=== PATIENT | male | born 1980 | race Caucasian/White ===

== ENCOUNTER 2016-10-14 06:14 | Emergency (ER) | payer SELFPAY ==
--- NOTE | 2016-10-14 06:49 | ED ---
Influenza-Like Illness - HPI Summary HPI Summary: Patient presents for evaluation of uri, cough, body aches for the last 2 days. Had 2 sick contacts at home which may have had influenza. [place] lightheaded when standing, but not drinking much during this time period because he is tired. Denies recent antipyretics or antibiotics, travel, dyspnea. - History of Current Complaint Chief Complaint: EDFluSymptoms Time Seen by Provider: 10/14/16 06:35 Hx Obtained From: Patient, Family/Certified Physician Assistant - Aunt Associated Signs & Symptoms: Myalgia, Cough, Sore Throat, Nasal Congestion Related Hx: Possible Flu/Infectious Exposure - Risk Factors Influenza Risk Factors: Negative - Allergy/Home Medications Allergies/Adverse Reactions: Allergies Allergy/AdvReac Type Severity Reaction Status Date / Time No Known Allergies Allergy Verified 10/14/16 06:16 PMH/Surg Hx/FS Hx/Imm Hx Previously Healthy: Yes Infectious Disease History: No Infectious Disease History: Denies: Traveled Outside the [place] in Last 30 Days Review of Systems Constitutional: Negative Negative: Fever, Chills Negative: Photophobia Positive: Sore Throat Cardiovascular: Negative Negative: Palpitations, Chest Pain Positive: Cough. Negative: Shortness Of Breath All Other Systems Reviewed And Are Negative: Yes Physical Exam Triage Information Reviewed: Yes Vital Signs On Initial Exam: Initial Vitals Temp Pulse Resp BP Pulse Ox 99.5 F 82 18 113/81 100 10/14/16 06:14 10/14/16 06:14 10/14/16 06:14 10/14/16 06:14 10/14/16 06:14 Vital Signs Reviewed: Yes Appearance: Positive: Well-Appearing, No Pain Distress, Well-Nourished Skin: Positive: Warm, Skin Color Reflects Adequate Perfusion, Dry Head/Face: Positive: Normal Head/Face Inspection Eyes: Positive: Normal, EOMI, LEON ENT: Positive: Pharyngeal erythema, Nasal congestion, TMs normal, TM bulging, TM dull, TM red. Negative: Nasal drainage, Tonsillar swelling, Tonsillar exudate, Trismus, Muffled/hoarse voice, Dental tenderness Neck: Positive: Supple, Nontender, No Lymphadenopathy Respiratory/Lung Sounds: Positive: Clear to Auscultation, Breath Sounds Present Cardiovascular: Positive: Normal, RRR, Pulses are Symmetrical in both Upper and Lower Extremities Abdomen Description: Positive: Nontender, No Organomegaly, Soft Musculoskeletal: Positive: Normal, Strength/ROM Intact Neurological: Positive: Normal, Sensory/Motor Intact, Alert, Oriented to Person Place, Time, CN Intact II-III, Reflexes Intact, Normal Gait Diagnostics - Vital Signs Vital Signs Temp Pulse Resp BP Pulse Ox 10/14/16 06:14 99.5 F 82 18 113/81 100 - Laboratory Lab Statement: Any lab studies that have been ordered have been reviewed, and results considered in the medical decision making process. Flu Symptom Course/Dx - Diagnoses Differential Diagnosis/HQI/PQRI: Positive: Influenza, Pneumonia, Upper Respiratory Infection, Other - Primary concern for URI and viral syndrome, but will eval for influenza since not vaccinated this year. No focal lung sounds and 2 days duration, but he is requesting CXR to eval for pneumonia. PCP FU and supportive care at home. Provider Diagnoses: Viral syndrome Discharge - Discharge Plan Condition: Stable Disposition: HOME Prescriptions: Oseltamivir CAP* [Tamiflu CAP*] 75 mg PO BID #10 cap Patient Education Materials: Influenza (ED), Viral Syndrome (ED)
--- NOTE | 2016-10-14 08:17 | RAD ---
INDICATION: Cough COMPARISON: None TECHNIQUE: PA and lateral views of the chest were obtained. FINDINGS: The heart and mediastinum are normal in size and contour. The lungs are grossly clear. There is no evidence of large pleural effusion. Visualized bones are normal for the patient's age. There is no radiographic evidence of free air beneath the diaphragm IMPRESSION: No radiographic evidence of acute cardiopulmonary disease.
[2016-10-14 11:04] VITALS: BP 126/76
--- NOTE | 2016-10-14 12:25 | CONSULT ---
Consult Consult: Jesus Manuel Ocampo presented on the previous shift with in influenza-like picture. He was treated symptomatically and his Influenza A swab returned positive. He was feeling quite a bit better and D/C'd with a prescription for TamiFlu. He left in stable condition with a diagnosis of Influenza A.
== END 2016-10-14 11:01 | disposition home or self-care (01) ==
LOC: ED 06:14
DX: J09.X2 Influenza due to identified novel influenza A virus with other respiratory manifestations (principal)
CPT/HCPCS: 71020; 87502; 99282